=== PATIENT | male | born 1960 | race Caucasian/White ===

== ENCOUNTER 2019-07-18 13:44 | Emergency (ER) | payer SELFPAY ==
[~2019-07-18] VITALS: Ht 172.7 cm; Wt 79.4 kg
--- NOTE | 2019-07-18 13:55 | NUR ---
PATIENT WAS MSE BY DR PLUNKETT. WAS BIB BY [id number].
[2019-07-18] MEDS ORDERED: IV NORMAL SALINE 1000 ML BAG IV ONE (14:00)
--- NOTE | 2019-07-18 14:04 | NUR ---
Patient does not wish to proceed with medical care recommended by Dr. PLUNKETT. Patient given information related to possible complications, up to and including , which could occur as a result of leaving the hospital at this time. Patient verbalizes understanding of risks involved due to leaving against medical advice. Patient has signed AMA form.
--- NOTE | 2019-07-18 14:05 | NUR ---
PATIENT REFUSED EKG, IV, LAB TEST, X-RAYS DR PLUNKETT MADE AWARE. REFUSED HOMELESS RESOURCES.
--- NOTE | 2019-07-18 14:10 | NUR ---
PATIENT IN ER LOBBY EATING HIS MEAL.
--- NOTE | 2019-07-18 14:15 | NUR ---
PATIENT WALKED OUT OF ER LOBBY IN TO [facility] NOTED NOT IN ANY DISTRESS. STEADY GAIT.
== END 2019-07-18 14:15 | disposition left against medical advice (07) ==
LOC: ER 13:44
DX: R53.1 Weakness (principal); Z59.0 Homelessness
CPT/HCPCS: 71045; 93005; A4663